=== PATIENT | female | born 1995 ===

== ENCOUNTER 2016-07-10 07:46 | Emergency (ER) | payer OTHER ==
[~2016-07-10] VITALS: Ht 154.9 cm; Wt 66.3 kg
[~2016-07-10 07:46] MED LIST: CHOL1000 PO; DIVA500T59 PO; FOLI1TAB7 PO
[2016-07-10 07:49] VITALS: TEMP 37; Ht 154.9 cm; Wt 66.3 kg
[2016-07-10] MEDS ORDERED: SODIUM CHLORIDE 0.9% 1000ML 1,000 ML IV STA (08:04)
[2016-07-10] MEDS ORDERED: ACETAMINOPHEN 500 MG TAB PO STA (08:04)
[2016-07-10] MEDS ORDERED: ONDANSETRON INJ 2 MG/ML 2 ML VIAL IV STA (08:04)
[2016-07-10 08:26] LABS: BASO % 0.5 %; BASO ABS # 0.04 K/uL (0-0.2); COMPLETE YES; EOS % 2.9 %; HEMATOCRIT 34.5 % (37-47); IG% 0.5 %; LYMPH % 29.4 %; LYMPH ABS # 2.61 K/uL (1.2-3.4); MEAN CELL VOLUME 82.7 fL (80-100); MEAN CORPUSCULAR HEMOGLOBIN 28.1 pg (25-34); MEAN CORPUSCULAR HGB CONC 33.9 g/dl (32-36); MEAN PLATELET VOLUME 10.1 fL (7.4-10.4); MONO % 5.9 %; NEUT % 60.8 %; PLATELET COUNT 314 K/uL (130-400); RED BLOOD COUNT 4.17 M/uL (4.2-5.4); WHITE BLOOD COUNT 8.87 K/uL (4.8-10.8)
--- NOTE | 2016-07-10 08:36 | EMERGENCY ROOM VISIT NOTE ---
History Report prepared by Jaxibhilda: Wen Bowling Under the Supervision of: Dr. Michael Cadena M.D. First contact with patient: 07:59 Chief Complaint: SEIZURE Stated Complaint: SEIZURE Nursing Triage Summary: Pt arrives via ALS. Pt was at her apartment, roommates state she was acting confused, lethargic, they summoned EMS. Pt has a hx of seizures. No seizure activity noted. Pt did not eat breakfast. Compliant with taking her Depakote per the pt. [facility]. States last seizure was months ago. History of Present Illness The patient is a 20 year old female who presents to the Emergency Room via EMS with complaints of resolved seizure-like activity that occurred this morning. The patient has a history of seizures. The patient states that she was getting ready and taking a shower when she started to feel shaky. She felt as if she may have a seizure. She remembers doing her hair and next thing she remembers is her roommate trying to calm her down. Her roommates told EMS that she was acting very confused and not like herself, which is typical for her after a seizure. Her roommates did not witness a seizure but the patient believes she did have a seizure. She occasionally bites her tongue when she has a seizure, but did not bite her tongue today. She was not incontinent of urine. Currently, she complains of mild nausea and an 8/10 headache. She usually has improvement of her headaches when she sleeps. Her most recent seizure prior to today was August 2015. She is on Depakote and reports missing her dose 2 days ago. She has been sleeping well and hydrating herself recently. Denies any increased stress or fatigue. Denies cough, cold, congestion, vomiting, or other complaints. Denies recent medication changes. Source of History: patient Onset: this morning Position: other (global) Quality: other (seizure-like activity) Timing: resolved Associated Symptoms: + headache, + nausea, No cough, No fatigue, No vomiting Review of Systems See HPI for pertinent positives & negatives. A total of 10 systems reviewed and were otherwise negative. Past Medical & Surgical Medical Problems: (1) Seizure disorder Family History No pertinent family history Social History Smoking Status: Never Smoker Alcohol Use: none Drug Use: none Housing Status: lives with roommate Occupation Status: [employer] student Current/Historical Medications Scheduled Cholecalciferol (Vitamin D3), 2,000 UNITS PO DAILY Divalproex Sodium (Depakote), 1,500 MG PO HS Folic Acid (Folvite), 4 MG PO DAILY Allergies Coded Allergies: No Known Allergies (Unverified , 07/10/16) Physical Exam Vital Signs Date Time Temp Pulse Resp B/P Pulse Ox O2 Delivery O2 Flow Rate FiO2 07/10/16 11:52 91 18 111/59 97 Room Air 07/10/16 11:03 80 16 108/55 99 Room Air 07/10/16 10:04 68 14 104/51 100 Room Air 07/10/16 09:22 66 17 115/66 100 Room Air 07/10/16 08:31 63 14 112/67 98 Room Air 07/10/16 07:55 88 07/10/16 07:49 37.0 92 16 133/78 97 Room Air Physical Exam GENERAL: Patient is in no acute distress. HEENT: No acute trauma, normocephalic atraumatic, mucous membranes moist, no nasal congestion, no scleral icterus. NECK: No stridor, no adenopathy, no meningismus, trachea is midline. LUNGS: Clear to auscultation bilaterally, no wheeze, no rhonchi, breath sounds equal. HEART: Without murmurs gallops or rubs, regular rate and rhythm. ABDOMEN: Soft, nontender, bowel sounds positive, no hernias, no peritonitis. EXTREMITIES: No cyanosis or edema, full range of motion of all the joints without pain or difficulty, no signs for acute trauma. NEUROLOGIC: Oriented x 3, no acute motor or sensory deficits, no focal weakness. SKIN: No rash, no jaundice, no diaphoresis. Medical Decision & Procedures ER Provider Diagnostic Interpretation: Radiology results and stated below per my review and radiologist interpretation: HEAD CT NONCONTRAST CT DOSE: 638.56 mGycm HISTORY: confusion TECHNIQUE: Multiaxial CT images of the head were performed without the use of intravenous contrast. Automated exposure control was utilized for this study. Comparison: None. Findings: The paranasal sinuses and mastoid air cells are clear. The calvarium and skull base are intact. The ventricles and sulci are within normal limits. There is no mass, hematoma, midline shift, or acute infarct. Impression: No acute intracranial abnormality. Electronically signed by: Fazal Pimentel M.D. 07/10/2016 11:04 AM Dictated Date/Time: 07/10/2016 11:01 AM Laboratory Results 07/10/16 07:53 Red Blood Count 4.17, Mean Corpuscular Volume 82.7, Mean Corpuscular Hemoglobin 28.1, Mean Corpuscular Hemoglobin Concent 33.9, Mean Platelet Volume 10.1, Neutrophils (%) (Auto) 60.8, Lymphocytes (%) (Auto) 29.4, Monocytes (%) (Auto) 5.9, Eosinophils (%) (Auto) 2.9, Basophils (%) (Auto) 0.5, Neutrophils # (Auto) 5.40, Lymphocytes # (Auto) 2.61, Monocytes # (Auto) 0.52, Eosinophils # (Auto) 0.26, Basophils # (Auto) 0.04 07/10/16 07:53 Test 07/10/16 07:53 White Blood Count 8.87 K/uL (4.8-10.8) Red Blood Count 4.17 M/uL (4.2-5.4) Hemoglobin 11.7 g/dL (12.0-16.0) Hematocrit 34.5 % (37-47) Mean Corpuscular Volume 82.7 fL (80-100) Mean Corpuscular Hemoglobin 28.1 pg (25-34) Mean Corpuscular Hemoglobin Concent 33.9 g/dl (32-36) Platelet Count 314 K/uL (130-400) Mean Platelet Volume 10.1 fL (7.4-10.4) Neutrophils (%) (Auto) 60.8 % Lymphocytes (%) (Auto) 29.4 % Monocytes (%) (Auto) 5.9 % Eosinophils (%) (Auto) 2.9 % Basophils (%) (Auto) 0.5 % Neutrophils # (Auto) 5.40 K/uL (1.4-6.5) Lymphocytes # (Auto) 2.61 K/uL (1.2-3.4) Monocytes # (Auto) 0.52 K/uL (0.11-0.59) Eosinophils # (Auto) 0.26 K/uL (0-0.5) Basophils # (Auto) 0.04 K/uL (0-0.2) RDW Standard Deviation 41.4 fL (36.4-46.3) RDW Coefficient of Variation 13.7 % (11.5-14.5) Immature Granulocyte % (Auto) 0.5 % Immature Granulocyte # (Auto) 0.04 K/uL (0.00-0.02) Anion Gap 9.0 mmol/L (3-11) Est Creatinine Clear Calc Drug Dose 116.7 ml/min Estimated GFR () 146.7 Estimated GFR (Non- 126.5 BUN/Creatinine Ratio 20.0 (10-20) Calcium Level 8.8 mg/dl (8.5-10.1) Total Bilirubin 0.2 mg/dl (0.2-1) Aspartate Amino Transf (AST/SGOT) 11 U/L (15-37) Alanine Aminotransferase (ALT/SGPT) 14 U/L (12-78) Alkaline Phosphatase 49 U/L (45-117) Total Protein 7.6 gm/dl (6.4-8.2) Albumin 3.5 gm/dl (3.4-5.0) Globulin 4.1 gm/dl (2.5-4.0) Albumin/Globulin Ratio 0.9 (0.9-2) Human Chorionic Gonadotropin, Qual NEG (NEG) Valproic Acid (Depakene) Level 3 mcg/ml (50-100) Laboratory results reviewed by me. Medications Administered Medications (Trade) Dose Ordered Sig/Ariane Route Start Time Stop Time Status Last Admin Dose Admin Acetaminophen (Tylenol Tab) 1,000 mg NOW STAT PO 07/10/16 08:04 07/10/16 08:07 DC 07/10/16 08:20 1,000 MG Ondansetron HCl 4 mg 4 mg NOW STAT IV 07/10/16 08:04 07/10/16 08:07 DC 07/10/16 08:20 4 MG Sodium Chloride 1,000 ml @ 999 mls/hr Q1H1M STAT IV 07/10/16 08:04 07/10/16 09:04 DC 07/10/16 08:20 999 MLS/HR Valproate Sodium 500 mg/Dextrose 55 ml @ 55 mls/hr NOW STAT IV 07/10/16 09:04 07/10/16 10:03 DC 07/10/16 09:21 55 MLS/HR Valproate Sodium/ Dextrose (Depacon Iv/D5 50ml) 55 ml @ 55 mls/hr NOW STAT IV 07/10/16 10:12 07/10/16 11:11 DC 07/10/16 10:22 55 MLS/HR ED Course 0801: The patient was evaluated in room A11. A complete history and physical exam was performed. 0804: Ordered NSS 1000 ml @ 999 mls/hr IV, Zofran Inj 4 mg IV, Tylenol 1000 mg PO. 0904: Ordered Valproate Sodium 500 mg/Dextrose 55 ml @ 55 mls/hr IV. 1010: I discussed the case with Shivani Leon Neurology. She recommended giving the patient 500 mg Depakote IV and increasing the patients night time dose to 2000 mg. 1012: Ordered Valproate Sodium 500 mg/Dextrose 55 ml @ 55 mls/hr IV. 1050: I reassessed the patient. She was still groggy. 1135: Reevaluated the patient. She states that she usually sleeps all day after having a seizure. Discussed results and discharge instructions: She verbalized understanding and agreement. The patient is ready for discharge. Medical Decision Differential includes but is not limited to breakthrough seizure, dehydration, electrolyte imbalance, low Depakote level, fatigue, infection, UTI, . There is no leukocytosis or concerning anemia. No significant electrolyte abnormality, kidney failure or hepatitis. testing is negative. Depakote level is quite low at 3. Brain CT shows no acute bleed or mass effect. On exam, the patient was sleepy but had no focal neurologic deficits and was oriented 3. Patient received IV saline, IV Zofran and oral Tylenol. She was given IV Depakote. 2 doses of IV Depakote were administered. I discussed the patient's case with the on-call neurologist. She suggested having the patient increase her Depakote dosing to 2000 mg at night. The patient is being discharged to follow these instructions. She will stay hydrated and rest. I suspect she has been missing some Depakote doses and she understands she must take this every day. The patient was encouraged to return here if worsening. 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 Consults Time Called: 0145 Consulting Physician: Shivani Leon Neurology Returned Call: [phone] I discussed the case with her. She recommended giving the patient 500 mg Depakote IV and increasing the patients night time dose to 2000 mg. Impression Primary Impression: Seizure Additional Impression: Subtherapeutic Depakote level Scribe Attestation The scribe's documentation has been prepared under my direction and personally reviewed by me in its entirety. I confirm that the note above accurately reflects all work, treatment, procedures, and medical decision making performed by me. Departure Information Dispostion Home / Self-Care Referrals [facility] (PCP) Patient Instructions My [facility] Additional Instructions increase the depakote dosing to 2000 mg at night rest stay well hydrated you cannot drive a vehicle until given permission by neurologist call and speak with your neurologist today or tomorrow return if worsening Problem Qualifiers
[2016-07-10 08:42] LABS: CALCIUM 8.8 mg/dl (8.5-10.1); CREATININE 0.67 mg/dl (0.60-1.20); POTASSIUM 4.1 mmol/L (3.5-5.1)
[2016-07-10 08:46] LABS: ALB/GLOB RATIO 0.9 (0.9-2)
[2016-07-10 08:50] LABS: PREG INTERNAL NEGATIVE QC NEG CLEAR BACKGROUND; PREG INTERNAL POSITIVE QC POS CONTROL LINE
[2016-07-10] MEDS ORDERED: VALPROATE SOD IV 500 MG in DEXTROSE 5% 50ML 50 ML IV STA ×2 (09:04→10:12)
--- NOTE | 2016-07-10 11:06 | DIAGNOSTIC IMAGING REPORT ---
HEAD CT NONCONTRAST CT DOSE: 638.56 mGycm HISTORY: confusion TECHNIQUE: Multiaxial CT images of the head were performed without the use of intravenous contrast. Automated exposure control was utilized for this study. Comparison: None. Findings: The paranasal sinuses and mastoid air cells are clear. The calvarium and skull base are intact. The ventricles and sulci are within normal limits. There is no mass, hematoma, midline shift, or acute infarct. Impression: No acute intracranial abnormality. Electronically signed by: Fazal Pimentel M.D. 07/10/2016 11:04 AM Dictated Date/Time: 07/10/2016 11:01 AM
[2016-07-10 11:52] VITALS: BP 111/59; PULSE 91; O2SAT 97
== END 2016-07-10 11:57 | disposition home or self-care (01) ==
LOC: EDBD 07:46 → C.EDA 07:47
DX: G40.909 Epilepsy, unspecified, not intractable, without status epilepticus (principal); R78.89 Finding of other specified substances, not normally found in blood; Z79.899 Other long term (current) drug therapy